=== PATIENT | male | born 1975 | race African-American/Black ===

== ENCOUNTER 2016-10-23 21:12 | Emergency (ER) | payer MEDICAID, OTHER ==
[~2016-10-23] VITALS: Ht 185.4 cm; Wt 204.1 kg
[2016-10-23 21:38] LABS: Basophils # (auto) 0.1 uL; Basophils % (auto) 1.3 % (0.0-2.0); CONDITION Y; Eosinophils # (auto) 0.1 uL; Eosinophils % (auto) 0.8 % (0.0-7.0); Hematocrit 41.5 % (41.0-53.0); Hemoglobin 13.7 g/dL (13.5-17.5); Lymphocytes # (auto) 4.1 uL; Lymphocytes % (auto) 45.3 % (10.0-50.0); Mean Corpuscular Hemoglobin 27.1 pg (28.0-32.0); Mean Corpuscular Volume 82.1 fL (80.0-100.0); Mean Platelet Volume 8.1 fL (7.4-10.4); Monocytes # (auto) 0.9 uL; Monocytes % (auto) 9.7 % (0.0-12.0); Neutrophils # (auto) 3.9 uL; Neutrophils % (auto) 42.9 % (37.0-80.0); Platelet Count (auto) 296 10^3/uL (140-450); Red Cell Distribution Width 14.6 % (11.6-16.0); SUSPECT SEE PRINTOUT; White Blood Cell 9.1 10^3/uL (4.4-10.8)
[2016-10-23 21:53] LABS: INR 0.93 (0.9-1.15); Partial Thromboplastin Time 25.5 sec (22.64-33.71); Prothrombin Time 10.1 sec (9.37-12.3)
[2016-10-23 21:54] LABS: Albumin 3.2 g/dL (3.4-5.0); Anion Gap 9 (5-15); Aspartate Aminotransferase 16 U/L (15-37); BUN/Creatinine Ratio 12.6; Blood Urea Nitrogen 13 mg/dL (7-18); Calcium 8.2 mg/dL (8.5-10.1); Carbon Dioxide 24 mmol/L (21-32); Chloride 109 mmol/L (98-107); GFR African American 103 mL/min; GFR Non-African American 85 mL/min; Glucose 73 mg/dL (74-106); Magnesium 1.9 mg/dL (1.6-2.6); Potassium 3.8 mmol/L (3.5-5.1); Sodium 142 mmol/L (136-145)
[2016-10-23 22:00] LABS: Alkaline Phosphatase 63 U/L (45-117); Bilirubin, Total 0.5 mg/dL (0.2-1.0); Total Protein 7.4 g/dL (6.4-8.2)
[2016-10-23 22:02] LABS: B-Type Natriuretic Peptide 13.54 pg/mL (0-100)
[2016-10-23 22:08] LABS: Temperature: 22.7 C (20.0-25.0)
[2016-10-23 22:52] LABS: Platelet Estimate Adequate
[2016-10-23 22:53] LABS: Giant Platelets Few
[2016-10-24] MEDS ORDERED: NITROGLYCERIN 0.4MG/HR TOPICAL PATCH TD ONE (00:45)
[2016-10-24 03:16] VITALS: BP 142/88
== END 2016-10-24 03:28 | disposition short-term general hospital (02) ==
LOC: EDBD 21:12 → ER 21:15
DX: I20.9 Angina pectoris, unspecified (principal); E11.9 Type 2 diabetes mellitus without complications
CPT/HCPCS: 36415; 71010; 80053; 83735; 83880; 84443; 84484; 85025; 85610; 85730; 93005; 94761

== ENCOUNTER 2019-06-14 11:18 | Inpatient (IN) | payer MEDICAID, OTHER ==
[~2019-06-14] VITALS: Ht 185.4 cm; Wt 217.7 kg
[2019-06-14 13:07] LABS: Basophils # (auto) 0.1 10 ^3/uL (0-0.2); Basophils % (auto) 0.9 % (0.0-2.0); Eosinophils # (auto) 0.1 10 ^3/uL (0-0.8); Eosinophils % (auto) 0.8 % (0.0-7.0); Hematocrit 44.7 % (41.0-53.0); Hemoglobin 14.5 g/dL (13.5-17.5); Lymphocytes # (auto) 2.3 10 ^3/uL (0.4-5.4); Lymphocytes % (auto) 30.6 % (10.0-50.0); Mean Corpuscular Hgb Conc. 32.5 g/dL (32.0-36.0); Mean Corpuscular Volume 82.9 fL (80.0-100.0); Monocytes # (auto) 0.7 10 ^3/uL (0-1.3); Neutrophils # (auto) 4.4 10 ^3/uL (1.6-8.6); Neutrophils % (auto) 58.7 % (37.0-80.0); Nucleated Red Blood Cells % 0.1 %; Platelet Count (auto) 263 10^3/uL (140-450); Red Blood Cells 5.39 10^6/uL (4.5-5.90); Red Cell Distribution Width 14.5 % (11.8-14.3); White Blood Cell 7.5 10^3/uL (4.4-10.8)
[2019-06-14 13:28] LABS: Albumin 2.9 g/dL (3.4-5.0); Anion Gap 5 (5-15); BUN/Creatinine Ratio 15.3; Blood Urea Nitrogen 15 mg/dL (7-18); Calcium 8.9 mg/dL (8.5-10.1); Carbon Dioxide 28 mmol/L (21-32); Chloride 104 mmol/L (98-107); GFR African American 108 mL/min; GFR Non-African American 89 mL/min; Glucose 195 mg/dL (74-106); Magnesium 1.8 mg/dL (1.6-2.6); Potassium 4.3 mmol/L (3.5-5.1); Sodium 137 mmol/L (136-145)
[2019-06-14 13:33] LABS: Alanine Aminotransferase 31 U/L (16-61); Alkaline Phosphatase 69 U/L (45-117); Aspartate Aminotransferase 14 U/L (15-37); Bilirubin, Total 0.3 mg/dL (0.2-1.0); Total Protein 7.8 g/dL (6.4-8.2)
[2019-06-14] MEDS ORDERED: NITROGLYCERIN 0.4 MG SL TAB SL PRN (20:45)
[2019-06-14] MEDS ORDERED: MORPHINE SULF INJ 2 MG/ML SYRINGE 1ML IV PRN (20:45)
[2019-06-14] MEDS ORDERED: DEXTROSE (50%) 50ML SYRG IV PRN (20:45)
[2019-06-14 23:24] LABS: INR 0.94 (0.9-1.15)
[2019-06-14 23:30] VITALS: BP 156/94
--- NOTE | 2019-06-14 23:30 | NUR ---
Telemetry admit from ER GERALD PAN admitted to Telemetry unit after SBAR received. Patient oriented to CARMELINA BEYER RN primary RN, unit, room, bed, and unit policies regarding patient care and visiting hours. Patient now on continuous telemetry monitoring, tele box #[id number] and telemetry reading on arrival to unit is AFIB 80s-90s. Upon arrival to the floor, patient A&O x4, no s/s of distress or SOB noted at this time and patient denies any pain. Patient weighed by bedscale and encouraged to call if they need something. All questions and concerns addressed, patient verbalized understanding. Note:
[2019-06-14] MEDS: ACCU-CHEK COMFORT CURVE STRIP VI SCH (23:36)
[2019-06-14] MEDS: InsuLIN REG 1unit/0.01ml Soln (100units/ml) SC SCH (23:36)
[2019-06-15 03:31] VITALS: BP 156/94
[2019-06-15 05:30] VITALS: BP 144/85
[2019-06-15] MEDS: ACCU-CHEK COMFORT CURVE STRIP VI SCH ×4 (06:44→21:42)
[2019-06-15] MEDS: InsuLIN REG 1unit/0.01ml Soln (100units/ml) SC SCH ×3 (06:45→17:41)
[2019-06-15 08:00] VITALS: BP 132/56
[2019-06-15 09:00] VITALS: BP 132/56
[2019-06-15] MEDS: ASPirin 81 mg TAB PO SCH (10:39)
[2019-06-15 11:39] LABS: Potassium 4.3 mmol/L (3.5-5.1)
[2019-06-15 11:43] LABS: BUN/Creatinine Ratio 11.4; Calcium 9.2 mg/dL (8.5-10.1)
[2019-06-15] MEDS ORDERED: INSULIN LISPRO (HUMAN) 100 UNITS/ML ML SC ONE (13:30)
[2019-06-15] MEDS ORDERED: DEXTROSE (50%) 50ML SYRG IV PRN (13:30)
[2019-06-15] MEDS: LISINOPRIL 10 MG TAB PO ONE ×2 (13:30→18:14)
[2019-06-15 15:51] LABS: Urine Bacteria NONE SEEN /hpf (None Seen); Urine Blood Negative /uL (Negative); Urine Specific Gravity 1.023 (1.001-1.035); Urine WBC <1 /hpf (0 - 3)
[2019-06-15 16:09] LABS: Alcohol, Urine < 3.0 mg/dL (0-5); Amphetamine Screen, Urine NEGATIVE (NEGATIVE); Barbiturate Scree,Urine NEGATIVE (NEGATIVE); Benzodiazephine Screen, Urine NEGATIVE (NEGATIVE); Cannabinoid Screen, Urine NEGATIVE (NEGATIVE); Cocaine Screen, Urine NEGATIVE (NEGATIVE); Phencyclidine Screen, Urine NEGATIVE (NEGATIVE)
[2019-06-15 16:12] LABS: Opiate Scree,Urine NEGATIVE (NEGATIVE)
--- NOTE | 2019-06-15 16:17 | NUR ---
WOUND CARE NOTE: ORDERED [facility] BARIATRIC BED AT THIS TIME. PATIENT TO BE PLACED, PENDING DELIVERY BY GLENN CADE
[2019-06-15 16:57] VITALS: BP 144/90
[2019-06-15] MEDS: INSULIN LISPRO (HUMAN) 100 UNITS/ML ML SC SCH (17:40)
--- NOTE | 2019-06-15 18:30 | NUR ---
Specialty bed delivered and set up.
--- NOTE | 2019-06-15 19:30 | NUR ---
Opening Shift Note Report received from day shift RN. Assumed care of patient, awake and A&O x4. No S/S of distress/SOB noted and patient denies pain at this time. Instructed on POC and to call for assist PRN, will continue to monitor for changes Q1hr and PRN.
[2019-06-15] MEDS: APIXABAN 5 MG TAB PO SCH (21:31)
[2019-06-15 22:00] VITALS: BP 138/77
[2019-06-15] MEDS ORDERED: INSULIN LANTUS (GLARGINE) 1 /0.01ml (100units/ml) SC SCH (22:00)
[2019-06-15] MEDS: METOPROLOL TARTRATE 25 MG TAB PO SCH (22:00)
[2019-06-15] MEDS ORDERED: ATORVASTATIN 20 MG TAB PO SCH (22:00)
[2019-06-15] MEDS ORDERED: InsuLIN REG 1unit/0.01ml Soln (100units/ml) SC SCH (22:00)
[2019-06-16 05:00] VITALS: BP 159/87
--- NOTE | 2019-06-16 07:25 | NUR ---
Opening Shift Note Assumed care of patient, awake and alert. No S/S of distress/SOB or pain reported at this time. Instructed on POC and to call for assist PRN, call light within reach, will continue to monitor for changes Q1hr and PRN.
[2019-06-16] MEDS: ACCU-CHEK COMFORT CURVE STRIP VI SCH ×2 (07:30→11:30)
[2019-06-16 08:10] VITALS: BP 126/62
[2019-06-16] MEDS: INSULIN LISPRO (HUMAN) 100 UNITS/ML ML SC SCH ×2 (08:10→11:30)
[2019-06-16] MEDS: InsuLIN REG 1unit/0.01ml Soln (100units/ml) SC SCH ×2 (08:11→11:30)
[2019-06-16 09:00] VITALS: BP 126/63
[2019-06-16] MEDS ORDERED: LISINOPRIL 10 MG TAB PO SCH (10:00)
[2019-06-16] MEDS: ASPirin 81 mg TAB PO SCH (10:25)
[2019-06-16] MEDS: METOPROLOL TARTRATE 25 MG TAB PO SCH (10:25)
[2019-06-16] MEDS: APIXABAN 5 MG TAB PO SCH (10:26)
[2019-06-16] MEDS ORDERED: INSU1INJ19 SC (11:49)
[2019-06-16] MEDS ORDERED: MET25T PO (11:49)
[2019-06-16] MEDS ORDERED: ATOR20TA50 PO (11:49)
[2019-06-16] MEDS ORDERED: METF-929 PO (11:49)
[2019-06-16] MEDS ORDERED: ASPI81CH43 PO (11:49)
[2019-06-16] MEDS ORDERED: APIX5TAB PO (11:49)
[2019-06-16] MEDS ORDERED: LISI-648 PO (11:49)
--- NOTE | 2019-06-16 12:30 | NUR ---
ACTIVITY PT AMBULATING TO BATHROOM, GAIT STEADY, NO C/O SOB, CP OR ANY OTHER DISCOMFORT, CONT CARE
[2019-06-16 13:00] VITALS: BP 139/86
[2019-06-16 13:28] VITALS: BP 126/62
--- NOTE | 2019-06-16 14:46 | NUR ---
DISCHARGE Discharge instructions given as ordered. Encourage to follow up with PMD as instructed. Appointment made with Dr Dailey on 06/28/19 @1:30. All questions and concerns addressed. Patient verbalized understanding. Medication reconciliation form completed and copy given to patient. IV removed with catheter intact, pressure dressing applied. Telemetry unit returned to ICU. Patient ambulated to [facility] [address] [facility] with all personal belongings, accompanied by staff and family member. No distress noted at time of departure.
[2019-08-30] MEDS ORDERED: LISI-648 PO (14:57)
== END 2019-06-16 14:44 | disposition home or self-care (01) | DRG 309 ==
LOC: ER 11:18 → TELE 11:19 → TELE-WESTW 23:09
PROVIDERS: ADMIT Nurse Practitioner Acute Care; ATTEND Internal Medicine
PROC: 5A09357 Assistance with Respiratory Ventilation, Less than 24 Consecutive Hours, Continuous Positive Airway Pressure (ICD-10-PCS; principal; 2019-06-15)
PROC: 5A09357 Assistance with Respiratory Ventilation, Less than 24 Consecutive Hours, Continuous Positive Airway Pressure (ICD-10-PCS; 2019-06-16)
DX: I48.91 Unspecified atrial fibrillation (principal); D68.59 Other primary thrombophilia; Z68.44 Body mass index [BMI] 60.0-69.9, adult; Z79.82 Long term (current) use of aspirin; R07.9 Chest pain, unspecified; E66.01 Morbid (severe) obesity due to excess calories; E11.9 Type 2 diabetes mellitus without complications; I10 Essential (primary) hypertension; R10.9 Unspecified abdominal pain; E11.65 Type 2 diabetes mellitus with hyperglycemia; G47.33 Obstructive sleep apnea (adult) (pediatric); Z86.711 Personal history of pulmonary embolism; Z86.718 Personal history of other venous thrombosis and embolism
CPT/HCPCS: 36415; 71046; 76705; 80048; 80053; 80061; 80307; 81001; 82043; 82962; 83036; 83735; 83880; 84439; 84443; 84484; 85025; 85379; 85610; 85730; 93005; 93306; 93970; 94660; G0378; J1815

== ENCOUNTER 2019-08-29 12:26 | Inpatient (IN) | payer SELFPAY ==
[~2019-08-29] VITALS: Ht 182.9 cm; Wt 217.3 kg
[~2019-08-29 12:26] MED LIST: APIX5TAB PO; ASPI81CH43 PO; ATOR20TA50 PO; INSU1INJ19 SC; LISI10TA6 PO; MET25T PO; METF-929 PO
[2019-08-29] MEDS ORDERED: ASPirin 81 mg TAB PO ONE (12:30)
[2019-08-29] MEDS: FUROSEMIDE 40 MG/4 ML VIAL IV ONE ×2 (12:45→14:35)
[2019-08-29 12:52] LABS: Basophils # (auto) 0.1 10 ^3/uL (0-0.2); Eosinophils # (auto) 0.1 10 ^3/uL (0-0.8); Neutrophils # (auto) 2.8 10 ^3/uL (1.6-8.6)
[2019-08-29 12:54] LABS: Basophils % (auto) 1.7 % (0.0-2.0); Eosinophils % (auto) 1.4 % (0.0-7.0); Hematocrit 45.3 % (41.0-53.0); Hemoglobin 14.5 g/dL (13.5-17.5); Lymphocytes # (auto) 2.3 10 ^3/uL (0.4-5.4); Lymphocytes % (auto) 38.5 % (10.0-50.0); Mean Corpuscular Hemoglobin 26.4 pg (28.0-32.0); Mean Corpuscular Hgb Conc. 32.1 g/dL (32.0-36.0); Mean Corpuscular Volume 82.4 fL (80.0-100.0); Monocytes # (auto) 0.7 10 ^3/uL (0-1.3); Monocytes % (auto) 11.3 % (0.0-12.0); Neutrophils % (auto) 47.1 % (37.0-80.0); Platelet Count (auto) 284 10^3/uL (140-450); Red Blood Cells 5.49 10^6/uL (4.5-5.90); White Blood Cell 5.9 10^3/uL (4.4-10.8)
[2019-08-29 13:12] LABS: Chloride 104 mmol/L (98-107); Potassium 4.1 mmol/L (3.5-5.1); Sodium 137 mmol/L (136-145)
[2019-08-29 13:21] LABS: Alanine Aminotransferase 31 U/L (16-61); Albumin 2.9 g/dL (3.4-5.0); Alkaline Phosphatase 61 U/L (45-117); Anion Gap 6 (5-15); Aspartate Aminotransferase 18 U/L (15-37); BUN/Creatinine Ratio 10.8; Bilirubin, Total 0.7 mg/dL (0.2-1.0); Blood Urea Nitrogen 10 mg/dL (7-18); Calcium 8.6 mg/dL (8.5-10.1); Carbon Dioxide 27 mmol/L (21-32); GFR African American 114 mL/min; GFR Non-African American 94 mL/min; Glucose 150 mg/dL (74-106); Total Protein 7.3 g/dL (6.4-8.2)
[2019-08-29] MEDS ORDERED: IOHEXOL 350 MG/ML 100ML IJ ONE (14:32)
[2019-08-29 14:37] LABS: Urine Bacteria FEW /hpf (None Seen); Urine Blood Negative /uL (Negative); Urine Specific Gravity 1.008 (1.001-1.035); Urine WBC <1 /hpf (0 - 3)
[2019-08-29] MEDS ORDERED: MORPHINE SULF INJ 2 MG/ML SYRINGE 1ML IV PRN (15:15)
[2019-08-29] MEDS ORDERED: NITROGLYCERIN 0.4 MG SL TAB SL PRN (15:15)
[2019-08-29] MEDS ORDERED: DEXTROSE (50%) 50ML SYRG IV PRN (15:15)
[2019-08-29] MEDS: ACCU-CHEK COMFORT CURVE STRIP VI SCH ×2 (17:00→22:00)
[2019-08-29] MEDS: InsuLIN REG 1unit/0.01ml Soln (100units/ml) SC SCH ×2 (17:00→21:37)
[2019-08-29 18:45] VITALS: BP 153/94
[2019-08-29 19:16] VITALS: BP 153/94
[2019-08-29] MEDS: METOPROLOL TARTRATE 25 MG TAB PO SCH (21:34)
[2019-08-29] MEDS: APIXABAN 5 MG TAB PO SCH (21:34)
[2019-08-29] MEDS: AMIODARONE HCL 200 MG TAB PO SCH (21:35)
[2019-08-29] MEDS ORDERED: INSULIN LANTUS (GLARGINE) 1 /0.01ml (100units/ml) SC SCH (22:00)
[2019-08-29] MEDS ORDERED: ATORVASTATIN 20 MG TAB PO SCH (22:00)
[2019-08-29 22:09] VITALS: BP 129/69
[2019-08-29 23:00] VITALS: BP 129/69
[2019-08-30 05:00] VITALS: BP 139/86
[2019-08-30 05:59] LABS: Basophils # (auto) 0 10 ^3/uL (0-0.2); Basophils % (auto) 0.5 % (0.0-2.0); Eosinophils # (auto) 0.1 10 ^3/uL (0-0.8); Eosinophils % (auto) 1.4 % (0.0-7.0); Hematocrit 43.9 % (41.0-53.0); Hemoglobin 14.3 g/dL (13.5-17.5); Lymphocytes # (auto) 2.3 10 ^3/uL (0.4-5.4); Lymphocytes % (auto) 40.8 % (10.0-50.0); Mean Corpuscular Hemoglobin 27.1 pg (28.0-32.0); Mean Corpuscular Hgb Conc. 32.7 g/dL (32.0-36.0); Mean Corpuscular Volume 82.9 fL (80.0-100.0); Monocytes # (auto) 0.6 10 ^3/uL (0-1.3); Monocytes % (auto) 10.7 % (0.0-12.0); Neutrophils # (auto) 2.6 10 ^3/uL (1.6-8.6); Neutrophils % (auto) 46.6 % (37.0-80.0); Nucleated Red Blood Cells % 0.1 %; Platelet Count (auto) 276 10^3/uL (140-450); White Blood Cell 5.7 10^3/uL (4.4-10.8)
[2019-08-30 06:22] LABS: Potassium 3.9 mmol/L (3.5-5.1)
[2019-08-30 06:26] LABS: BUN/Creatinine Ratio 9.4; Calcium 8.3 mg/dL (8.5-10.1)
[2019-08-30] MEDS: ACCU-CHEK COMFORT CURVE STRIP VI SCH ×3 (06:47→17:00)
[2019-08-30] MEDS: InsuLIN REG 1unit/0.01ml Soln (100units/ml) SC SCH ×3 (06:48→17:00)
[2019-08-30 08:00] VITALS: BP 135/85
[2019-08-30 08:57] VITALS: BP 135/85
[2019-08-30 09:00] VITALS: BP 135/85
[2019-08-30] MEDS ORDERED: OPTISON 3ml Vial for INJ IV ONE (09:47)
[2019-08-30] MEDS ORDERED: LISINOPRIL 10 MG TAB PO SCH (10:00)
[2019-08-30] MEDS ORDERED: ASPirin 81 mg TAB PO SCH (10:00)
[2019-08-30] MEDS: APIXABAN 5 MG TAB PO SCH (10:05)
[2019-08-30] MEDS: AMIODARONE HCL 200 MG TAB PO SCH (10:05)
[2019-08-30] MEDS: METOPROLOL TARTRATE 25 MG TAB PO SCH (10:06)
[2019-08-30] MEDS ORDERED: FUROSEMIDE 20 MG/2 ML VIAL IV ONE (10:30)
[2019-08-30] MEDS ORDERED: PANTOPRAZOLE 40 MG TAB PO ONE (10:45)
[2019-08-30 13:00] VITALS: BP 136/73
[2019-08-30] MEDS: RANOLAZINE ER 500 MG TAB PO ONE ×2 (13:45→14:20)
[2019-08-30 14:46] VITALS: BP 136/73
[2019-08-30] MEDS ORDERED: APIX5TAB PO (14:57)
[2019-08-30] MEDS ORDERED: MET25T PO (14:57)
[2019-08-30] MEDS ORDERED: LISI10TA6 PO (14:57)
[2019-08-30] MEDS ORDERED: ATOR20TA50 PO (14:57)
[2019-08-30] MEDS ORDERED: METF-929 PO (14:57)
[2019-08-30] MEDS ORDERED: INSU1INJ19 SC (14:57)
[2019-08-30] MEDS ORDERED: RANOLAZINE ER 500 MG TAB PO SCH (22:00)
[2019-08-31] MEDS ORDERED: PANTOPRAZOLE 40 MG TAB PO SCH (10:00)
[2019-08-31] MEDS ORDERED: FUROSEMIDE 20 MG/2 ML VIAL IV SCH (10:00)
== END 2019-08-30 17:45 | disposition home or self-care (01) | DRG 302 ==
LOC: ER 12:26 → TELE 12:27 → TELE-WESTW 22:12
PROVIDERS: ADMIT Nurse Practitioner Acute Care; ATTEND Internal Medicine
DX: I25.10 Atherosclerotic heart disease of native coronary artery without angina pectoris (principal); I50.43 Acute on chronic combined systolic (congestive) and diastolic (congestive) heart failure; D68.59 Other primary thrombophilia; Z68.44 Body mass index [BMI] 60.0-69.9, adult; E11.9 Type 2 diabetes mellitus without complications; G47.30 Sleep apnea, unspecified; I11.0 Hypertensive heart disease with heart failure; E78.5 Hyperlipidemia, unspecified; E88.09 Other disorders of plasma-protein metabolism, not elsewhere classified; E66.01 Morbid (severe) obesity due to excess calories; Z79.01 Long term (current) use of anticoagulants; Z79.82 Long term (current) use of aspirin; Z86.711 Personal history of pulmonary embolism; Z79.899 Other long term (current) drug therapy; Z79.4 Long term (current) use of insulin; Z83.3 Family history of diabetes mellitus; Z91.14 Patient's other noncompliance with medication regimen
CPT/HCPCS: 36415; 71275; 80048; 80053; 81001; 82962; 83036; 83880; 84484; 85025; 93005; 93306; 93970; 94660; 96372; 96374; 99291; G0378; J1815; Q9956